=== PATIENT | male | born 1985 | race American Indian/Alaskan Native ===

== ENCOUNTER 2019-09-27 19:29 | Emergency (ER) | payer OTHER ==
[~2019-09-27] VITALS: Ht 185.4 cm; Wt 117.9 kg
--- NOTE | 2019-09-27 20:25 | ER.PDOC ---
General Chief Complaint: Requesting Medical Care Stated Complaint: COUGH/SOB Time seen by MD: 20:16 Source: patient Exam Limitations: no limitations History of Present Illness Initial Comments Patient c/o cough/congestion x 3-4 days. He travelled from the [facility] and doesn't know if he may have encountered someone COVID19 positive in any of the restaurants or convenience stores they visited on the way. A co-worker is also sick so his boss told him to come here for COVID19 testing. He denies fever but does have a sore throat. No loss of taste or smell. No GI sx. Timing/Duration: gradual Severity: mild Associated Symptoms: sore throat, cough, productive cough, mild SOB Worsen By: deep breathing Constitutional: no symptoms reported EENTM: throat pain Respiratory: cough, shortness of breath Cardiovascular: no symptoms reported Gastrointestinal: no symptoms reported Genitourinary: no symptoms reported Musculoskeletal: no symptoms reported Skin: no symptoms reported Past Medical History Medical History: no pertinent history Social History Smoking: cigarettes Physical Exam General Appearance: alert, no distress Eye: conjunctivae erythema Throat: pharyngeal erythema Respiratory: no resp.distress, breath sounds nml Abdomen: non-tender CVS: reg rate & rhythm, heart sounds nml Skin: color nml, no rash, warm/dry Extremities: non-tender, no pedal edema Results/Orders Results/Orders Orders - MARVA NAVA DO Influenza A&B (09/27/19 19:46) Strep Screen (09/27/19 19:46) Novel Coronavirus 2019([facility]) (09/27/19 19:46) Xr Chest 1v (09/27/19 19:46) Vital Signs Date Time Temp Pulse Resp B/P (MAP) Pulse Ox O2 Delivery O2 Flow Rate FiO2 09/27/19 20:36 98.5 82 16 97 Laboratory Tests Test 09/27/19 20:17 Influenza Type A Antigen NEGATIVE (NEG) Influenza B Immunofluorescence NEGATIVE (NEG) Group A Streptococcus Screen NEGATIVE (NEGATIVE) Progress Progress flu and strep negative Departure Time of Disposition: 20:40 Disposition: 01 HOME, SELF-CARE Impression: Primary Impression: Suspected 2019 novel coronavirus infection Additional Impression: Viral syndrome Condition: Stable Patient Instructions: Viral Syndrome Referrals: PCP,UNKNOWN (PCP) PRIMARY CARE PROVIDER Additional Instructions: Return to ER if you experience any difficulty breathing or swallowing or for any emergent concern. Sequester at home until your COVID19 results are known. Duration or Time Spent with Pa: 20 min Problem Qualifiers MARVA NAVA DO Sep 27, 2019 20:25
[2019-09-27 20:36] VITALS: BP 132/82
[2019-09-27 20:42] VITALS: BP 132/82
--- NOTE | 2019-09-27 20:44 | DIREP ---
PROCEDURE:CHEST X-RAY, FRONTAL VIEW COMPARISON:None. INDICATIONS:cough FINDINGS: LUNGS/PLEURA:No significant pulmonary parenchymal abnormalities. No effusions. VASCULATURE:Normal. Unremarkable pulmonary vasculature. CARDIAC:Normal. No cardiac silhouette abnormality or cardiomegaly. MEDIASTINUM:Normal. No visible mass or adenopathy. BONES:Normal. No fracture or visible bony lesion. OTHER:Negative. CONCLUSION: No cardiopulmonary abnormality is identified. Dictated by: Elfego Harper MD on 09/27/2019 at 08:43 PM
== END 2019-09-27 20:55 | disposition home or self-care (01) ==
LOC: ER 19:29
DX: B34.9 Viral infection, unspecified (principal); J02.9 Acute pharyngitis, unspecified; R05 Cough; R06.02 Shortness of breath; F17.210 Nicotine dependence, cigarettes, uncomplicated; Z20.828 Contact with and (suspected) exposure to other viral communicable diseases
CPT/HCPCS: 71045; 87070; 87635; 87804; 87880; 99284